=== PATIENT | male | born 1965 | race Caucasian/White ===

== ENCOUNTER 2016-12-12 22:54 | Emergency (ER) | payer OTHER ==
[2016-12-13 03:31] LABS: HEMOGLOBIN 16.5 gm/dl (14.0-17.5); RED BLOOD COUNT 5.38 M/UL (4.20-5.50)
[2016-12-13 04:00] LABS: BUN/CREATININE RATIO 16 (0-10)
== END 2016-12-13 05:23 | disposition home or self-care (01) ==
LOC: ER1 22:54
PROVIDERS: Emergency Medicine
DX: N13.2 Hydronephrosis with renal and ureteral calculous obstruction (principal); K57.32 Diverticulitis of large intestine without perforation or abscess without bleeding
CPT/HCPCS: 36415; 80053; 81001; 83690; 85025; 87086; 96361; 96374; 96375; 99284; J2270; J2405; J7030

== ENCOUNTER → 2020-11-23 | Outpatient (CLI) | payer OTHER ==
[~2020-11-23] MED LIST: MEDROL4 MG PO; MUCINEX600 MG PO; OMNICEF 300 MG300 MG PO
== END ==
LOC: KOH-I 08:59
DX: Z12.2 Encounter for screening for malignant neoplasm of respiratory organs (principal); F17.210 Nicotine dependence, cigarettes, uncomplicated; R91.8 Other nonspecific abnormal finding of lung field
CPT/HCPCS: 71271

== ENCOUNTER → 2021-03-06 | Outpatient (CLI) | payer OTHER | LOC: KOH-I 11:01 | DX: M54.9 Dorsalgia, unspecified (principal); M48.061 Spinal stenosis, lumbar region without neurogenic claudication; N20.0 Calculus of kidney | CPT/HCPCS: 72100 ==

== ENCOUNTER 2021-05-15 16:42 | Emergency (ER) | payer OTHER ==
[~2021-05-15] VITALS: Ht 188 cm; Wt 113.4 kg
== END 2021-05-15 19:24 | disposition home or self-care (01) ==
LOC: ER1 16:42
DX: U07.1 COVID-19 (principal); I10 Essential (primary) hypertension; F17.200 Nicotine dependence, unspecified, uncomplicated; Z23 Encounter for immunization; Z87.442 Personal history of urinary calculi
CPT/HCPCS: 99283; M0243

== ENCOUNTER → 2022-02-01 | Outpatient (CLI) | payer OTHER | LOC: KOH-I 13:41 | DX: M79.671 Pain in right foot (principal) | CPT/HCPCS: 73630 ==

== ENCOUNTER → 2022-02-02 | Outpatient (CLI) | payer OTHER | LOC: EXRD 08:00 | DX: N28.89 Other specified disorders of kidney and ureter (principal) | CPT/HCPCS: 76775 ==

== ENCOUNTER → 2022-05-10 | Outpatient (CLI) | payer OTHER | LOC: RT 12:52 | DX: D45 Polycythemia vera (principal) | CPT/HCPCS: 36600; 82803 ==